=== PATIENT | male | born 2005 | race Caucasian/White ===

== ENCOUNTER 2024-02-20 12:50 | Emergency (ER) | payer OTHER ==
[~2024-02-20] VITALS: Ht 172.7 cm; Wt 130.0 kg
[2024-02-20 12:51] VITALS: O2SAT 98
[2024-02-20] MEDS: KETOROLAC 15MG/ML VIAL IM ONE (14:54)
[2024-02-20 14:55] VITALS: BP 128/87; PULSE 87; RESP 16; TEMP 36.83628; O2SAT 98
== END 2024-02-20 15:26 | disposition home or self-care (01) ==
LOC: ER 12:50
DX: M79.672 Pain in left foot (principal); M79.671 Pain in right foot
CPT/HCPCS: 99283; 73630; 96372; J1885